=== PATIENT | female | born 1995 | race Caucasian/White ===

== ENCOUNTER 2024-12-22 11:02 | Inpatient (IN) ==
[2024-12-22] MEDS ORDERED: LIDOCAINE 1% LOCAL 20 ML VIAL INFIL PRN (11:06)
[2024-12-22] MEDS ORDERED: OXYTOCIN 30 UNITS/NSS 30 UNITS/500 ML BAG IV PRN (11:06)
[2024-12-22 11:31] LABS: Hematocrit (blood only) 36.7 % (37.0-47.0); Hemoglobin 12.2 g/dl (12.0-16.0); Mean Corpuscular Hemoglobin 28.1 pg (25.0-34.0); Mean Corpuscular Volume 84.6 fL (80.0-100.0); Platelet Count 188 K/uL (130-400); RDW Standard Deviation 42.7 fL (36.4-46.3); Red Blood Count 4.34 M/uL (4.20-5.40); White Blood Count 12.04 K/ul (4.8-10.8)
--- NOTE | 2024-12-22 11:38 | History & Physical Report ---
Date of Service December 22, 2024 Assessment & Plan (1) Postmaturity , 40-42 weeks gestation: (2) Encounter for induction of labor: Plan fetus category one. soliman /pit for iol. epidural on demand. arom when indicated. anticipate . Admission and Anticipated Discharge Date Admission Date: December 22, 2024 History of Present Illness Chief Complaint: postdates Primary Care Provider: NO PCP Patient is a 29yowf with iup at 40 3/7 weeks who presents for a postdates iol. cervix unfavorable. Notes some intermittent contractions. no lof/vb. +fm and Delivery Plans Rh negative - Needs Rhogam Rhogam given 09/28/24 [facility] PD IOL scheduled 12/22 with [facility] Labs: Blood Type O Negative 05/29/24 Antibody Screen NEGATIVE 09/28/24 Hgb 11.7 g/dl (12.0-16.0) L 09/28/24 Hct 34.9 % (37.0-47.0) L 09/28/24 MCV 85.4 fL (80.0-100.0) 05/29/24 Plt Count 282 K/uL (130-400) 05/29/24 Rubella IgG Antibody Immune (Immune) 05/29/24 Treponema pallidum Ab Negative (Negative) 09/28/24 Hep Bs Antigen Negative (Negative) 05/29/24 Hepatitis C Antibody Negative (Negative) 05/29/24 HIV 1&2 Ab/P24 Ag 4thGn Prelim Positive (Negative) A 05/29/24 HIV (1&2) Ag & Ab Conf NON-REACTIVE (NON-REACTIVE) 05/29/24 Glucose 1 Hr 50 gm 136 mg/dl (70-130) H 09/28/24 OB Optional Labs: Chlamydia trachomatis RNA Not Detected (NotDetected) 05/29/24 Neisseria gonorrhoeae RNA Not Detected (NotDetected) 05/29/24 Labs Reviewed: Horizon 14-negative--mln cfdna-low risk--mln gbs neg--akh Allergies Allergy/AdvReac Type Severity Reaction Status Date / Time adhesive Allergy Mild Rash Verified 12/21/24 15:27 Home Medications Medication Instructions Recorded Confirmed Type PNV no.[id number] 1 tab PO 05/19/24 12/21/24 History [ Gummies] Patient History Medical History History of chicken pox Endometriosis Endometrioma of ovary Raynauds disease Anxiety no meds History of COVID-19 2020- resolved Migraine Surgical History S/P ovarian cystectomy Left H/O oral surgery Family History Grandmother Colorectal cancer Aunt Ovarian cancer Denies family history of Prostate cancer Myocardial infarction Breast cancer Social History Smoking Status: Never smoker Second Hand Exposure: No; Do You Dip or Chew Tobacco: No; Hx Alcohol Use: No Hx Substance Use: No Preferred Language: Tanzanian Communication Ability: Effective Practice Or Student Teacher Required: No Beliefs That Will Affect Care: None marital status: Single marital status details: Hina Ratliff (30) [phone] Current Living Situation: Significant Other Current Living Situation Comment: lives with fob, dog, cat-pt to wear gloves/mask current occupational status: employed current occupation: [employer] How many Children do You have: 0 Other Information That Helps Us Care for You: No Feels Safe at Home: Yes Safety Concerns: Feels Safe At This Time Diet: regular caffeine: Yes Assistive Devices: Glasses 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 toco--q2-4min efm--130s wtih mod variability, accels to 150s, no decels Results & Data Vital Signs (Past 12 Hours) Vital Signs Temp Pulse Resp BP 12/22/24 11:20 81 140/87 12/22/24 11:15 36.9 C 20 Coding Level of Care Code None Diagnoses Postmaturity , 40-42 weeks gestation O48.0 Encounter for induction of labor Z34.90
[2024-12-22] MEDS: LACTATED RINGER'S 1,000 ML IV PRN (12:14)
[2024-12-22] MEDS: OXYTOCIN 30 UNITS/NSS 30 UNITS/500 ML BAG IV PRN ×2 (12:14→22:50)
--- NOTE | 2024-12-22 15:14 | Labor Progress Brief Note ---
Date of Service December 22, 2024 Subjective bulb fell out about 2pm. not really noting contractions. Assessment & Plan (1) Encounter for induction of labor: Plan continue current management. fetus category one. Admission and Anticipated Discharge Date Admission Date: December 22, 2024 Physical Exam Physical Exam: cx--3/75/-2/mid arom--clear toco--q2-4min, pit at 9 efm--140s with mod variability, accels to 150s, no decels Results & Data Vital Signs (Past 12 Hours) Vital Signs Temp Pulse Resp BP 12/22/24 15:03 79 123/79 12/22/24 14:55 20 12/22/24 14:55 36.7 C 20 12/22/24 14:31 86 136/83 12/22/24 13:14 83 137/88 12/22/24 12:22 82 126/83 12/22/24 11:20 81 140/87 12/22/24 11:15 36.9 C 20 Coding Level of Care Code None Diagnoses Encounter for induction of labor Z34.90
[2024-12-22] MEDS ORDERED: ROPIVACAINE 0.5% PF 5 MG/ML 20 ML VIAL EPI PRN (16:18)
[2024-12-22] MEDS ORDERED: NALOXONE HCL 1 MG in SODIUM CHLORIDE 0.9% 1,000 ML IV PRN (16:18)
[2024-12-22] MEDS ORDERED: NALOXONE HCL 0.4 MG/1 ML VIAL/CARP IV PRN (16:18)
[2024-12-22] MEDS ORDERED: ONDANSETRON INJ 2 MG/ML 2 ML VIAL IV PRN (16:18)
[2024-12-22] MEDS ORDERED: BUPIVACAINE 0.25% PF 30 ML VIAL EPI PRN (16:18)
[2024-12-22] MEDS ORDERED: diphenhydrAMINE 50 MG/ML VIAL IV PRN (16:18)
[2024-12-22] MEDS ORDERED: SODIUM CHLORIDE 0.9% PF INJ 10 ML VIAL EPI PRN (16:18)
[2024-12-22] MEDS ORDERED: NALBUPHINE HCL INJ 10 MG/ML AMP IV PRN (16:18)
[2024-12-22] MEDS ORDERED: LIDOCAINE 2% MPF LOCAL 5 ML VIAL EPI PRN (16:18)
--- NOTE | 2024-12-22 16:20 | Anesthesiology Consultation ---
Date of Service December 22, 2024 Assessment & Plan (1) Encounter for pre-operative examination: Chart Review Chart Review: Patient NOT seen in Pre Admission Testing and Acceptable Risk for Labor Epidural Consults Requested none History Height/Weight Height: 5 ft 1 in Weight: 65.317 kg Allergies Allergy/AdvReac Type Severity Reaction Status Date / Time adhesive Allergy Mild Rash Verified 12/21/24 15:27 Medications Home Medications Medication Instructions Recorded Confirmed Last Taken PNV no.601-[id number] 1 tab PO 05/19/24 12/21/24 12/22/24 08:00 [ Gummies] Active Medications Generic Name Dose Route Start Last Admin Trade Name Freq PRN Reason Stop Dose Admin Oxytocin 30 units in 500 mls @ 9 mls/hr 12/22/24 11:06 12/22/24 14:30 Pitocin 30 Units/Nss IV 12/24/24 11:05 0.54 units/hr .Q24H PRN 9 mls/hr Labor Induction/Augmentation Titration Protocol 0.54 UNITS/HR Lactated Ringer's 1,000 mls @ 125 mls/hr 12/22/24 11:06 12/22/24 15:40 Lr IV 12/24/24 11:05 999 mls/hr .Q8H PRN Infusion L&D Protocol Protocol Past Medical History Medical History (Updated 12/22/24 @ 16:20 by Tho Wade MD) Encounter for pre-operative examination History of chicken pox Endometriosis Endometrioma of ovary Raynauds disease Anxiety no meds History of COVID-19 2020- resolved Migraine Exercise / Class Metabolic Activity II 4-5 Yardwork/Stairs/Walk up hill Past Family History Family History Grandmother Colorectal cancer Aunt Ovarian cancer Denies family history of Prostate cancer Myocardial infarction Breast cancer Past Surgical History Surgical History S/P ovarian cystectomy Left H/O oral surgery Past Anesthesia History No Hx of Anesthesia Complications and No Family Hx of Anesthesia Complications Social History Smoking Status: Never smoker Do You Dip or Chew Tobacco: No Hx Alcohol Use: No alcohol intake frequency: holidays/special occasions only Hx Substance Use: No substance use type: does not use Physical Exam Vital Signs Last Vital Signs Temp 36.7 C 12/22/24 14:55 Pulse 102 H 12/22/24 16:18 Resp 20 12/22/24 14:55 BP 142/94 H 12/22/24 16:07 Pulse Ox 99 12/22/24 16:18 Testing Laboratory Results 12/22/24 11:16
[2024-12-22] MEDS: BUPIVACAINE 0.25% PF 30 ML VIAL ONE (16:40)
[2024-12-22] MEDS: fentANYL 2 MCG/ML BUPIVacaine 0.125%-NSS 100ML BAG EPI PRN (16:40)
[2024-12-22] MEDS: LIDOCAINE 2%/EPINEPHRINE 1:200,000 20 ML PF ONE (16:40)
[2024-12-22] MEDS: BUPIVACAINE 0.25% PF 30 ML VIAL EPI STA (17:37)
[2024-12-22] MEDS: SODIUM CHLORIDE 0.9% PF INJ 10 ML VIAL ONE (17:37)
[2024-12-22] MEDS: fentANYL 2 MCG/ML BUPIVacaine 0.125%-NSS 100ML BAG ONE (17:37)
[2024-12-22] MEDS: LIDOCAINE 2%/EPINEPHRINE 1:200,000 20 ML PF EPI STA (17:38)
[2024-12-22] MEDS: SODIUM CHLORIDE 0.9% PF INJ 10 ML VIAL EPI STA (17:38)
--- NOTE | 2024-12-22 20:49 | Labor Progress Brief Note ---
Date of Service December 22, 2024 Subjective Pushing with good effort for the last 30 minutes or so. Assessment & Plan (1) Encounter for induction of labor: Plan good effort, moving baby, reassuring strip. anticipate . Admission and Anticipated Discharge Date Admission Date: December 22, 2024 Physical Exam Physical Exam: cx--c/c/+2 toco--q2-3 efm--110-120 with mod variability, accels present, variables with pushes. Results & Data Vital Signs (Past 12 Hours) Vital Signs Temp Pulse Resp BP Pulse Ox 12/22/24 20:46 111 H 89 L 12/22/24 20:43 103 H 99 12/22/24 20:39 106 H 83 L 12/22/24 20:38 109 H 100 12/22/24 20:33 100 12/22/24 20:33 104 H 12/22/24 20:33 101 H 152/84 H 12/22/24 20:28 129 H 99 12/22/24 20:25 107 H 87 L 12/22/24 20:23 112 H 99 12/22/24 20:18 111 H 100 12/22/24 20:17 113 H 89 L 12/22/24 20:13 115 H 99 12/22/24 20:08 117 H 99 12/22/24 20:03 108 H 100 12/22/24 20:02 97 H 135/78 12/22/24 19:59 106 H 91 12/22/24 19:58 104 H 97 12/22/24 19:53 101 H 100 12/22/24 19:48 106 H 100 12/22/24 19:46 103 H 137/66 12/22/24 19:43 108 H 100 12/22/24 19:38 117 H 100 12/22/24 19:33 116 H 96 12/22/24 19:32 117 H 132/62 12/22/24 19:28 102 H 100 12/22/24 19:23 94 12/22/24 19:23 124 H 12/22/24 19:23 108 H 90 12/22/24 19:18 36.8 C 97 H 100 12/22/24 19:17 101 H 129/67 12/22/24 19:13 102 H 100 12/22/24 19:10 105 H 94 12/22/24 19:08 104 H 100 08/01/25 19:03 105 H 100 12/22/24 19:02 120 H 130/80 12/22/24 19:00 18 12/22/24 19:00 18 12/22/24 18:58 95 H 100 12/22/24 18:53 111 H 100 12/22/24 18:49 107 H 93 12/22/24 18:48 99 12/22/24 18:48 94 H 12/22/24 18:48 91 H 148/68 H 12/22/24 18:43 89 93 12/22/24 18:42 103 H 90 12/22/24 18:38 88 99 12/22/24 18:33 90 100 12/22/24 18:32 82 118/67 12/22/24 18:30 20 12/22/24 18:30 20 12/22/24 18:28 83 99 12/22/24 18:23 84 100 12/22/24 18:18 98 12/22/24 18:18 103 H 92 12/22/24 18:16 95 H 137/101 H 12/22/24 18:13 85 100 12/22/24 18:08 89 100 12/22/24 18:03 88 100 12/22/24 18:02 83 124/87 12/22/24 18:00 18 12/22/24 18:00 36.8 C 18 12/22/24 17:58 86 100 12/22/24 17:53 87 100 12/22/24 17:48 87 100 12/22/24 17:47 81 130/85 12/22/24 17:43 83 99 12/22/24 17:38 79 99 12/22/24 17:33 82 98 12/22/24 17:32 81 106/67 12/22/24 17:30 18 12/22/24 17:30 18 12/22/24 17:28 90 99 12/22/24 17:23 84 98 12/22/24 17:18 87 98 12/22/24 17:16 88 118/81 12/22/24 17:13 100 H 99 12/22/24 17:10 88 129/82 12/22/24 17:08 91 H 98 12/22/24 17:05 81 115/73 12/22/24 17:03 85 98 12/22/24 17:00 36.9 C 92 H 18 122/76 12/22/24 16:58 97 H 97 12/22/24 16:55 95 H 119/71 12/22/24 16:53 98 H 98 12/22/24 16:49 101 H 124/71 12/22/24 16:48 105 H 98 12/22/24 16:47 100 H 117/62 12/22/24 16:45 90 114/61 12/22/24 16:43 99 H 114/63 98 12/22/24 16:41 90 119/64 12/22/24 16:40 20 12/22/24 16:40 20 12/22/24 16:39 96 H 135/78 12/22/24 16:38 104 H 98 12/22/24 16:37 104 H 139/93 12/22/24 16:35 90 20 136/88 12/22/24 16:33 96 H 98 12/22/24 16:28 101 H 98 12/22/24 16:23 102 H 99 12/22/24 16:18 102 H 99 12/22/24 16:13 90 100 12/22/24 16:08 103 H 100 12/22/24 16:07 100 H 142/94 H 12/22/24 15:03 79 123/79 12/22/24 14:55 20 12/22/24 14:55 36.7 C 20 12/22/24 14:31 86 136/83 12/22/24 13:14 83 137/88 12/22/24 12:22 82 126/83 12/22/24 11:20 81 140/87 12/22/24 11:15 36.9 C 20 Coding Level of Care Code None Diagnoses Encounter for induction of labor Z34.90
--- NOTE | 2024-12-22 22:34 | Delivery Summary ---
Vaginal Delivery Summary Date of Service December 22, 2024 Vaginal Delivery Summary and 2nd Degree LAC (with bilateral labial and left sulcal) Pre-operative Diagnosis: at 40 weeks Post-operative Diagnosis: same thick meconium Procedure: soliman for cervical ripening pitocin induction arom epidural midline episiotomy second degree laceration, left sulcal laceration, bilateral labial lacs QBL: 271 Anesthesia: epidural Procedure: The patient was admitted for postdates induction. Got soliman and pitocin concurrently. When bulb fell out, had arom for clear fluid. The patient then progressed to c/c/+2. The patient pushed for approximately two hours to deliver a viable female in hanny position. The rest of the infant was then delivered without difficulty. A large gush of thick green/brown meconium noted after delivery of the head. The baby was vigorous. The nose and mouth were again bulb suctioned and the was placed in the maternal abdomen for drying and attention. Cord was clamped and cut at one minute of life. Cord blood and segment obtained. Placenta delivered spontaneous, intact with a three vessel cord. Cervix/sulci/rectum were intact. A second degree perineal laceration, left sulcal laceration, and bilateral labial lacs were repaired in the normal standard fashion. Hemostasis obtained with dilute pitocin and fundal massage. Apgars were 7/9. Mother and baby doing well at the end of the delivery. [facility] – [place] Vaginal Delivery Charge Delivery Type Details: and 2nd Degree LAC (with bilateral labial and left sulcal)
[2024-12-22] MEDS ORDERED: HYDROCORTISONE ACETATE 25 MG SUPP PR PRN (22:50)
[2024-12-22] MEDS ORDERED: DIPHTHER/TETAN/PERTUS Vaccine (Tdap, Adol/Adult) 0.5mL IM ONE (22:50)
[2024-12-22] MEDS ORDERED: BENZOCAINE 20% SPRY 85 APPLN/85 GM CAN EXT PRN (22:50)
[2024-12-22] MEDS: IBUPROFEN 600 MG TAB PO PRN (23:15)
--- NOTE | 2024-12-23 07:12 | Anesthesia Procedure Note ---
Date of Service December 23, 2024 Anesthesia Post Epidural Note Vital Signs Vital Signs: Temp Pulse Resp BP Pulse Ox O2 Del Method 36.8 C 88 14 119/70 95 Room Air 12/23/24 04:07 12/23/24 04:07 12/23/24 04:07 12/23/24 04:07 12/23/24 04:07 12/23/24 01:00 Pain Intensity Bilateral Abdomen: Pain Intensity: 0 Notes Mental Status: alert / awake / arousable and participated in evaluation Nausea / Vomiting: adequately controlled Pain: adequately controlled Airway Patency, RR, SpO2: stable & adequate BP & HR: stable & adequate Hydration State: stable & adequate Neuraxial Anesthesia: was administered and sensory block is resolving Anesthetic Complications: no major complications apparent and Pt Satisfied with anesthetic care Epidural: Removed without complications and With tip intact
--- NOTE | 2024-12-23 07:17 | Obstetrical Progress Note ---
Date of Service December 23, 2024 Assessment & Plan (1) Encounter for assessment: Plan Doing well. Routine care. Day #:: 0 Subjective Ambulation: ambulating normally Voiding: no voiding problems Passing Gas:: Yes Diet Tolerance:: regular diet Lochia:: Small Feeding Type:: breast feeding Physical Exam Constitutional WD/WN, vitals as above Cardiovascular Extremities: no calf tenderness and no edema Gastrointestinal (Abdomen) soft , nt, nd, ff/nt at u and slightly left Psychiatric A+Ox3, euthymic affect Results & Data Vital Signs (Past 12 Hours) Vital Signs Temp Pulse Pulse Resp BP BP Pulse Ox 12/23/24 04:07 36.8 C 86 14 119/70 95 12/23/24 04:07 95 12/23/24 04:07 88 12/23/24 04:04 86 L 12/23/24 04:04 98 H 12/23/24 04:03 86 12/23/24 04:03 119/70 12/23/24 01:03 100 H 97 12/23/24 01:01 100 H 117/65 12/23/24 01:00 36.9 C 99 H 16 117/65 97 12/23/24 00:58 103 H 97 12/23/24 00:53 108 H 98 12/23/24 00:48 115 H 95 12/23/24 00:46 110 H 119/64 12/23/24 00:43 103 H 97 12/23/24 00:38 102 H 97 12/23/24 00:33 102 H 98 12/23/24 00:31 102 H 122/66 12/23/24 00:28 107 H 98 12/23/24 00:23 108 H 98 12/23/24 00:18 109 H 98 12/23/24 00:16 113 H 130/80 12/23/24 00:13 102 H 99 12/23/24 00:08 105 H 100 12/23/24 00:03 89 99 12/23/24 00:01 90 126/80 12/22/24 23:58 102 H 98 12/22/24 23:53 109 H 99 12/22/24 23:48 92 H 98 12/22/24 23:46 86 129/81 12/22/24 23:43 95 H 100 12/22/24 23:38 92 H 99 12/22/24 23:33 89 99 12/22/24 23:31 94 H 130/83 12/22/24 23:28 90 99 12/22/24 23:23 97 H 100 12/22/24 23:18 94 H 98 12/22/24 23:16 100 H 129/82 12/22/24 23:13 98 H 98 12/22/24 23:08 101 H 99 12/22/24 23:03 101 H 98 12/22/24 23:01 101 H 125/76 12/22/24 22:58 102 H 98 12/22/24 22:53 98 H 98 12/22/24 22:48 99 H 99 12/22/24 22:46 105 H 119/77 12/22/24 22:43 103 H 98 12/22/24 22:38 98 H 98 12/22/24 22:33 98 H 97 12/22/24 22:31 102 H 125/80 12/22/24 22:28 114 H 99 12/22/24 22:26 95 H 125/74 12/22/24 22:23 99 H 97 12/22/24 22:18 93 12/22/24 22:18 104 H 12/22/24 22:18 105 H 93 12/22/24 22:16 47 L 125/77 12/22/24 22:15 98 H 118/74 12/22/24 22:13 103 H 98 12/22/24 22:08 116 H 98 12/22/24 22:03 138 H 97 12/22/24 21:58 114 H 99 12/22/24 21:53 111 H 95 12/22/24 21:48 98 H 98 12/22/24 21:47 108 H 136/64 92 12/22/24 21:43 98 H 98 12/22/24 21:41 99 H 82 L 12/22/24 21:38 97 H 98 12/22/24 21:35 114 H 91 12/22/24 21:33 105 H 98 12/22/24 21:31 101 H 138/78 12/22/24 21:30 105 H 92 12/22/24 21:28 103 H 98 12/22/24 21:25 106 H 93 12/22/24 21:23 120 H 98 12/22/24 21:19 110 H 89 L 12/22/24 21:18 104 H 97 12/22/24 21:16 103 H 134/71 12/22/24 21:13 97 H 98 12/22/24 21:08 109 H 98 12/22/24 21:04 109 H 92 12/22/24 21:03 104 H 97 12/22/24 21:01 130 H 130/72 12/22/24 20:58 98 12/22/24 20:58 101 H 12/22/24 20:58 101 H 89 L 12/22/24 20:53 108 H 98 12/22/24 20:51 100 H 88 L 12/22/24 20:48 105 H 99 12/22/24 20:47 104 H 138/78 12/22/24 20:46 111 H 89 L 12/22/24 20:43 103 H 99 12/22/24 20:39 106 H 83 L 12/22/24 20:38 109 H 100 12/22/24 20:33 100 12/22/24 20:33 104 H 12/22/24 20:33 101 H 152/84 H 12/22/24 20:28 129 H 99 12/22/24 20:25 107 H 87 L 12/22/24 20:23 112 H 99 12/22/24 20:18 111 H 100 12/22/24 20:17 113 H 89 L 12/22/24 20:13 115 H 99 12/22/24 20:08 117 H 99 12/22/24 20:03 108 H 100 12/22/24 20:02 97 H 135/78 12/22/24 19:59 106 H 91 12/22/24 19:58 104 H 97 12/22/24 19:53 101 H 100 12/22/24 19:48 106 H 100 12/22/24 19:46 103 H 137/66 12/22/24 19:43 108 H 100 12/22/24 19:38 117 H 100 12/22/24 19:33 116 H 96 12/22/24 19:32 117 H 132/62 12/22/24 19:28 102 H 100 12/22/24 19:23 94 12/22/24 19:23 124 H 12/22/24 19:23 108 H 90 12/22/24 19:18 36.8 C 97 H 100 12/22/24 19:17 101 H 129/67 O2 Del Method 12/23/24 04:07 12/23/24 04:07 12/23/24 04:07 12/23/24 04:04 12/23/24 04:04 12/23/24 04:03 12/23/24 04:03 12/23/24 01:03 12/23/24 01:01 12/23/24 01:00 Room Air 12/23/24 00:58 12/23/24 00:53 12/23/24 00:48 12/23/24 00:46 12/23/24 00:43 12/23/24 00:38 12/23/24 00:33 12/23/24 00:31 12/23/24 00:28 12/23/24 00:23 12/23/24 00:18 12/23/24 00:16 12/23/24 00:13 12/23/24 00:08 12/23/24 00:03 12/23/24 00:01 12/22/24 23:58 12/22/24 23:53 12/22/24 23:48 12/22/24 23:46 12/22/24 23:43 12/22/24 23:38 12/22/24 23:33 12/22/24 23:31 12/22/24 23:28 12/22/24 23:23 12/22/24 23:18 12/22/24 23:16 12/22/24 23:13 12/22/24 23:08 12/22/24 23:03 12/22/24 23:01 12/22/24 22:58 12/22/24 22:53 12/22/24 22:48 12/22/24 22:46 12/22/24 22:43 12/22/24 22:38 12/22/24 22:33 12/22/24 22:31 12/22/24 22:28 12/22/24 22:26 12/22/24 22:23 12/22/24 22:18 12/22/24 22:18 12/22/24 22:18 12/22/24 22:16 12/22/24 22:15 12/22/24 22:13 12/22/24 22:08 12/22/24 22:03 12/22/24 21:58 12/22/24 21:53 12/22/24 21:48 12/22/24 21:47 12/22/24 21:43 12/22/24 21:41 12/22/24 21:38 12/22/24 21:35 12/22/24 21:33 12/22/24 21:31 12/22/24 21:30 12/22/24 21:28 12/22/24 21:25 12/22/24 21:23 12/22/24 21:19 12/22/24 21:18 12/22/24 21:16 12/22/24 21:13 12/22/24 21:08 12/22/24 21:04 12/22/24 21:03 12/22/24 21:01 12/22/24 20:58 12/22/24 20:58 12/22/24 20:58 12/22/24 20:53 12/22/24 20:51 12/22/24 20:48 12/22/24 20:47 12/22/24 20:46 12/22/24 20:43 12/22/24 20:39 12/22/24 20:38 12/22/24 20:33 12/22/24 20:33 12/22/24 20:33 12/22/24 20:28 12/22/24 20:25 12/22/24 20:23 12/22/24 20:18 12/22/24 20:17 12/22/24 20:13 12/22/24 20:08 12/22/24 20:03 12/22/24 20:02 12/22/24 19:59 12/22/24 19:58 12/22/24 19:53 12/22/24 19:48 12/22/24 19:46 12/22/24 19:43 12/22/24 19:38 12/22/24 19:33 12/22/24 19:32 12/22/24 19:28 12/22/24 19:23 12/22/24 19:23 12/22/24 19:23 12/22/24 19:18 12/22/24 19:17
[2024-12-23 07:40] LABS: Hematocrit (blood only) 31.0 % (37.0-47.0); Hemoglobin 10.3 g/dl (12.0-16.0)
[2024-12-23] MEDS: DOCUSATE SODIUM 100 MG CAP PO SCH (08:31)
[2024-12-23] MEDS: PRENATAL VITAMIN 1 TAB PO SCH (08:31)
[2024-12-23] MEDS: ACETAMINOPHEN 325 MG TAB PO PRN (10:35)
[2024-12-23 23:11] VITALS: RESP 18
--- NOTE | 2024-12-24 09:08 | Obstetrical Progress Note ---
Date of Service December 24, 2024 Assessment & Plan (1) Encounter for assessment: 29 yo PP2 from , doing well -Meeting all pp milestones -O-/rubella immune, s/p rhogam -f/u 6 weeks for apptkoki home today Subjective Ambulation: ambulating normally Voiding: no voiding problems Passing Gas:: Yes Diet Tolerance:: regular diet Lochia:: Small Pain well managed with medication Review of Systems Denies fevers, chills, n/v, [place], CP, SOB Physical Exam Constitutional WD/WN, vitals as above no acute distress Respiratory normal respiratory effort, lungs clear to auscultation Cardiovascular RRR, no murmur, no edema Gastrointestinal (Abdomen) Percussion/Palpation: abdomen soft; abdomen nontender fundus firm at umbilicus and NT Musculoskeletal BLE symmetric, nonerythematous, nontender Results & Data Vital Signs (Past 12 Hours) Vital Signs Temp Pulse Resp BP Pulse Ox O2 Del Method 12/24/24 07:50 Room Air 12/24/24 07:50 98.8 F 97 H 18 123/81 100 Room Air 12/24/24 00:30 98.6 F 89 18 117/76 96 Room Air
[2024-12-24 15:45] VITALS: BP 129/82; PULSE 86; TEMP 98.4; O2SAT 98
== END 2024-12-24 18:15 | disposition home or self-care (01) | DRG 807 ==
LOC: 4S1 11:02 → 4E2 12-23 12:26